=== PATIENT | female | born 1980 | race Asian ===

== ENCOUNTER 2016-09-24 11:02 | Outpatient (CLI) | payer OTHER ==
[~2016-09-24 11:02] MED LIST: AMOXICILLIN250 M2 PO
== END 2016-09-24 19:11 | disposition home or self-care (01) ==
LOC: MRI 11:02
DX: D35.2 Benign neoplasm of pituitary gland (principal)

== ENCOUNTER 2018-11-18 07:38 | Outpatient (CLI) | payer OTHER | END 2018-11-18 20:54 | disposition home or self-care (01) | LOC: LABW 07:38 | DX: Z86.011 Personal history of benign neoplasm of the brain (principal) | CPT/HCPCS: 36415; 82533 ==

== ENCOUNTER 2018-12-19 12:55 | Outpatient (CLI) | payer OTHER | END 2018-12-19 22:50 | disposition home or self-care (01) | LOC: MRI 12:55 | DX: Z86.011 Personal history of benign neoplasm of the brain (principal) | CPT/HCPCS: A9576 ==

== ENCOUNTER 2019-03-25 08:22 | Outpatient (CLI) | payer OTHER | END 2019-03-25 19:26 | disposition home or self-care (01) | LOC: RAD 08:22 | DX: M54.5 Low back pain (principal) ==

== ENCOUNTER 2020-05-12 11:18 | Inpatient (IN) | payer OTHER ==
[~2020-05-12] VITALS: Ht 170.2 cm; Wt 136.3 kg
[2020-05-12 12:42] LABS: PLATELET COUNT 172 K/uL (152-353)
[2020-05-12 12:45] VITALS: BP 99/66; TEMP 97.6; Ht 170.2 cm; Wt 136.3 kg
[2020-05-12 13:09] LABS: POTASSIUM 3.7 mmol/L (3.6-5.2)
[2020-05-12] MEDS ORDERED: LIPITOR80 MG PO (14:38)
[2020-05-12] MEDS ORDERED: NEURONTIN 100M100 MG PO (14:40)
[2020-05-12] MEDS ORDERED: HYDROCHLOROT12.5 M1 PO (14:41)
[2020-05-12] MEDS ORDERED: EUTHYROX50 MCG PO (14:42)
[2020-05-12] MEDS ORDERED: DICL75TA4 PO (14:46)
[2020-05-12] MEDS ORDERED: HYDR10TA PO (14:54)
[2020-05-12] MEDS ORDERED: COMBIPATCH TD (14:56)
[2020-05-12 15:01] LABS: PLATELET COUNT 180 K/uL (152-353)
[2020-05-12 15:32] LABS: POTASSIUM 3.3 mmol/L (3.6-5.2)
[2020-05-12 16:00] VITALS: BP 101/65; TEMP 98.6
[2020-05-12 20:00] VITALS: BP 112/70; TEMP 97.5
[2020-05-13] VITALS (10 sets, daily range): BP systolic 102–180; BP diastolic 57–93; TEMP 98.3–99
[2020-05-13 05:47] LABS: PLATELET COUNT 177 K/uL (152-353)
[2020-05-13 06:12] LABS: POTASSIUM 3.2 mmol/L (3.6-5.2)
[2020-05-14] VITALS: BP 141/82; TEMP 97.7
[2020-05-14 04:00] VITALS: BP 130/75; TEMP 97.6
[2020-05-14 05:50] LABS: PLATELET COUNT 206 K/uL (152-353)
[2020-05-14 06:30] LABS: POTASSIUM 4.3 mmol/L (3.6-5.2)
[2020-05-14 07:45] VITALS: BP 100/63; TEMP 98.4
[2020-05-14 12:00] VITALS: BP 110/62; TEMP 98.3
[2020-05-14 16:00] VITALS: BP 97/45; TEMP 98.8
[2020-05-14 20:00] VITALS: BP 110/62; TEMP 97.8
[2020-05-15] VITALS: BP 113/71; TEMP 98
[2020-05-15 04:00] VITALS: BP 119/68; TEMP 98
[2020-05-15 08:00] VITALS: BP 105/61; TEMP 98.1
[2020-05-15 08:42] LABS: PLATELET COUNT 276 K/uL (152-353)
[2020-05-15 08:58] LABS: POTASSIUM 4.1 mmol/L (3.6-5.2)
[2020-05-15 12:00] VITALS: BP 110/67; TEMP 99.3
[2020-05-15 16:00] VITALS: BP 106/65; TEMP 98.8
[2020-05-15 20:00] VITALS: BP 100/70; TEMP 98.9
[2020-05-16] VITALS (7 sets, daily range): BP systolic 93–128; BP diastolic 46–77; TEMP 97.7–99.2
[2020-05-16 05:19] LABS: PLATELET COUNT 231 K/uL (152-353)
[2020-05-16 05:45] LABS: POTASSIUM 4.5 mmol/L (3.6-5.2)
[2020-05-17] VITALS (10 sets, daily range): BP systolic 94–156; BP diastolic 45–74; TEMP 97.8–99.3
[2020-05-17 08:14] LABS: POTASSIUM 3.8 mmol/L (3.6-5.2)
[2020-05-17 08:25] LABS: PLATELET COUNT 277 K/uL (152-353)
[2020-05-18 03:41] VITALS: BP 117/60; TEMP 98.6
[2020-05-18 05:38] LABS: PLATELET COUNT 322 K/uL (152-353)
[2020-05-18 08:00] VITALS: BP 132/76; TEMP 98.6
[2020-05-18 12:00] VITALS: BP 130/87; TEMP 98.2
[2020-05-18 16:00] VITALS: BP 112/66; TEMP 97.9
[2020-05-18 19:56] VITALS: BP 101/48; TEMP 99.5
[2020-05-18 23:35] VITALS: BP 108/56; TEMP 97.8
[2020-05-19 04:00] VITALS: BP 109/42; TEMP 98.1
[2020-05-19 08:00] VITALS: BP 112/69; TEMP 98.6
[2020-05-19 12:00] VITALS: BP 108/61; TEMP 98.1
[2020-05-19 12:32] LABS: PLATELET COUNT 270 K/uL (152-353)
[2020-05-19 12:46] LABS: POTASSIUM 3.1 mmol/L (3.6-5.2)
[2020-05-19 16:00] VITALS: BP 123/73; TEMP 97.8
[2020-05-19 20:00] VITALS: BP 126/75; TEMP 99.3
[2020-05-20] VITALS (7 sets, daily range): BP systolic 91–108; BP diastolic 46–60; TEMP 96.7–98.9
[2020-05-20 09:48] LABS: PLATELET COUNT 280 K/uL (152-353)
[2020-05-20 10:25] LABS: POTASSIUM 3.2 mmol/L (3.6-5.2)
[2020-05-21 04:25] VITALS: BP 99/55; TEMP 98.4
[2020-05-21 05:18] LABS: PLATELET COUNT 240 K/uL (152-353)
[2020-05-21 06:26] LABS: POTASSIUM 3.7 mmol/L (3.6-5.2)
[2020-05-21 07:56] VITALS: BP 91/51; TEMP 98.8
[2020-05-21 11:19] VITALS: BP 117/55; TEMP 98.8
[2020-05-21 15:35] VITALS: BP 118/50; TEMP 99.4
== END 2020-05-21 18:56 | disposition home or self-care (01) | DRG 177 ==
LOC: INF 11:18 → MED/SURG 12:08 → INF 12:44 → MED/SURG 05-21 18:56
PROVIDERS: ADMIT Family Medicine; ATTEND Family Medicine
DX: U07.1 COVID-19 (principal); J18.8 Other pneumonia, unspecified organism; E46 Unspecified protein-calorie malnutrition; Z68.42 Body mass index [BMI] 45.0-49.9, adult; E66.8 Other obesity; R09.02 Hypoxemia; E87.8 Other disorders of electrolyte and fluid balance, not elsewhere classified; I10 Essential (primary) hypertension; R00.1 Bradycardia, unspecified; R41.0 Disorientation, unspecified; G47.31 Primary central sleep apnea; D64.89 Other specified anemias; E03.8 Other specified hypothyroidism; G62.89 Other specified polyneuropathies; D72.828 Other elevated white blood cell count; D35.2 Benign neoplasm of pituitary gland; E66.01 Morbid (severe) obesity due to excess calories; Z71.3 Dietary counseling and surveillance
CPT/HCPCS: 36415; 36430; 36591; 36600; 80053; 82728; 82805; 83735; 84100; 84443; 85007; 85027; 85379; 86140; 86900; 86901; 87040; 87077; 87185; 87186; 87205; 93005; 94667; 94668; 94760; 96365; 96367; 96372; 96375; 99220; G0378; J0456; J0696; J1100; J1450; J1650; J2175; J2405; J2550; J3480; P9017; Q0239; Q9963

== ENCOUNTER 2021-06-16 08:27 | Outpatient (CLI) | payer OTHER ==
[~2021-06-16 08:27] MED LIST changes: +COMBIPATCH TD; +DICL75TA4 PO; +EUTHYROX50 MCG PO; +HYDR10TA PO; +HYDROCHLOROT12.5 M1 PO; +LIPITOR80 MG PO; +NEURONTIN 100M100 MG PO
== END 2021-06-16 21:34 | disposition home or self-care (01) ==
LOC: MRI 08:27
PROVIDERS: ATTEND Nurse Practitioner Family
DX: D35.2 Benign neoplasm of pituitary gland (principal)
CPT/HCPCS: A9576

== ENCOUNTER 2022-04-12 13:55 | Outpatient (CLI) | payer OTHER | END 2022-04-12 21:43 | disposition home or self-care (01) | LOC: MAMMO 13:55 | PROVIDERS: ATTEND Family Medicine | DX: R09.89 Other specified symptoms and signs involving the circulatory and respiratory systems (principal); Z12.31 Encounter for screening mammogram for malignant neoplasm of breast ==

== ENCOUNTER 2022-05-17 11:39 | Outpatient (CLI) | payer OTHER | END 2022-05-17 20:42 | disposition home or self-care (01) | LOC: MAMMO 11:39 | PROVIDERS: ATTEND Nurse Practitioner Family | DX: R92.8 Other abnormal and inconclusive findings on diagnostic imaging of breast (principal) ==